=== PATIENT | male | born 1950 | race Caucasian/White ===

== ENCOUNTER 2018-11-05 06:54 | Emergency (ER) | payer MEDICARE, OTHER ==
--- NOTE | 2018-11-05 08:04 | RAD ---
EXAM: Chest Two Views 11/05/2018 8:01 AM HISTORY: Right upper quadrant abdominal pain COMPARISON: Chest radiograph dated July 08, 2012 FINDINGS: Heart: Normal in size and contour. Pulmonary vessels: Normal. Costophrenic angles: Clear. Lungs: There is patchy airspace opacity within the right lower lobe suspicious for developing pneumon ia. The left lung is clear. Pneumothorax: None. Osseous structures:No acute osseous abnormality is evident. There is scattered degenerative and osteo arthritic change present. Additional findings: None. IMPRESSION: Patchy airspace opacity within the right lower lobe is suspicious for pneumonia. Recommend radiograph ic follow-up to resolution.
[2018-11-05 08:11] LABS: Bilirubin Negative (Negative); Blood, Urine Negative (Negative); Clarity CLEAR (Clear); Glucose, Urine (Dipstick) Negative (Negative); Leukocyte Negative (Negative); Nitrite Negative (Negative); Protein, Urine (Dipstick) Negative (Neg-Trace); Specific Gravity, Urine 1.023 (1.002-1.036); Urobilinogen 0.2 mg/dL (0.2-1.0)
--- NOTE | 2018-11-05 08:21 | ULT ---
Sonogram right upper quadrant HISTORY: Right upper quadrant pain. FINDINGS: Multiple shadowing echogenic foci are present within the dependent portion of the gallbladd er lumen. No gallbladder wall thickening or pericholecystic fluid. Common duct is 0.4 cm. Liver unremarkable without focal mass or intrahepatic biliary dilatation. No free fluid. IMPRESSION: Cholelithiasis. No evidence of acute biliary obstruction.
[2018-11-05 08:31] LABS: #Eosinphils 0.4 thou/uL (0.0-0.7); #Lymphocytes 1.4 thou/uL (1.20-3.40); #Monocytes 0.9 thou/uL (0.11-0.59); #Neutrophils 6.4 thou/uL (1.40-6.50); %Basophils 0.5 % (0.0-1.0); %Eosinophils 4.5 % (0.0-10.0); %Neutrophils 70.2 % (42.0-75.0); Hemoglobin 15.3 g/dL (14.0-18.0); Mean Corpuscular HGB CONC 33.5 g/dL (32.0-36.0); Mean Corpuscular Hemoglobin 31.1 pg (27.0-31.0); Mean Corpuscular Volume 92.9 fL (78.0-98.0); Mean Platelet Volume 6.9 fL (7.4-10.4); Platelet Count 221 thou/uL (130-400); RBC Distribution Width 12.6 % (11.5-14.5); Red Blood Cell (RBC) Count 4.91 mill/uL (4.70-6.10); White Blood Cell (WBC) Count 9.1 thou/uL (4.8-10.8)
[2018-11-05] MEDS ORDERED: Lidocaine 1% PF 5 ML VIAL ONE (08:44)
[2018-11-05] MEDS ORDERED: cefTRIAXone\\ROCEPHIN 1 GM VIAL ONE (08:44)
[2018-11-05] MEDS ORDERED: Azithromycin 250 MG TAB ONE (08:44)
[2018-11-05 08:54] LABS: ALT (SGPT) 18 U/L (8-55); AST (SGOT) 25 U/L (5-34); Albumin 4.3 g/dL (3.4-4.8); Alkaline Phosphatase 71 U/L (40-150); Anion Gap 10 mmol/L (10-20); BUN (Urea Nitrogen) 18 mg/dL (8.4-25.7); Bilirubin, Total 0.7 mg/dL (0.2-1.2); Calc. Creatinine Clearance 0 mL/min (70-130); Calcium 9.7 mg/dL (7.8-10.44); Carbon Dioxide 30 mmol/L (23-31); Chloride 105 mmol/L (98-107); Estimated GFR-MDRD 57; Globulin 2.5 g/dL (2.4-3.5); Glucose 106 mg/dL (80-115); Lipase 32 U/L (8-78); Potassium 4.7 mmol/L (3.5-5.1); Protein, Total 6.8 g/dL (5.8-8.1); Sodium 140 mmol/L (136-145)
== END 2018-11-05 09:10 | disposition home or self-care (01) ==
LOC: ERS 06:54
DX: J18.9 Pneumonia, unspecified organism (principal); I10 Essential (primary) hypertension; Z79.899 Other long term (current) drug therapy
CPT/HCPCS: 36415; 71046; 76705; 80053; 81003; 83690; 84484; 85025; 93005; 96372; J0696; J2001

== ENCOUNTER 2023-12-28 08:27 | Outpatient (CLI) | payer MEDICARE, OTHER ==
[2023-12-28 09:44] LABS: #Eosinphils 1.03 10x3/uL (0.0-0.5); #Neutrophils 3.05 10x3/uL (1.5-8.4); %Basophils 1.4 % (0.0-2.0); %Eosinophils 14.7 % (0.0-6.0); %Lymphocytes 27.5 % (18.0-47.0); %Monocytes 12.8 % (0.0-10.0); %Neutrophils 43.3 % (40.0-75.0); Hematocrit 43.8 % (38.8-50.0); Mean Corpuscular HGB CONC 34.2 g/dL (32.0-36.0); Mean Corpuscular Volume 90.5 fL (81.2-95.1); Mean Platelet Volume 9.2 fL (7.4-10.4); Platelet Count 213 10x3/uL (150-450); Red Blood Cell (RBC) Count 4.84 10x6/uL (4.32-5.72)
[2023-12-28 09:47] LABS: Prothrombin Time 10.9 sec (9.5-12.1)
[2023-12-28 10:04] LABS: Anion Gap 12 mmol/L (10-20); BUN (Urea Nitrogen) 15 mg/dL (8.4-25.7); Calc. Creatinine Clearance 0 mL/min (70-130); Calcium 9.3 mg/dL (7.8-10.44); Carbon Dioxide 26 mmol/L (23-31); Chloride 105 mmol/L (98-107); Estimated GFR 71; Glucose 99 mg/dL (83-110); Potassium 4.2 mmol/L (3.5-5.1); Sodium 139 mmol/L (136-145)
== END 2023-12-28 08:28 | disposition home or self-care (01) ==
LOC: LABBT 08:27
PROVIDERS: ATTEND Orthopaedic Surgery
DX: Z01.818 Encounter for other preprocedural examination (principal); M16.12 Unilateral primary osteoarthritis, left hip
CPT/HCPCS: 80048; 85025; 85610; 87081; 93005; 93010

== ENCOUNTER 2024-01-01 07:03 | Observation (INO) | payer MEDICARE, OTHER ==
[2024-01-01] MEDS ORDERED: Tranexamic Acid 1,000 MG/10 ML VIAL ONE (07:34)
[2024-01-01] MEDS ORDERED: Vancomycin (BATCH) 1.5 GM/300 ML BAG ONE (07:35)
[2024-01-01] MEDS ORDERED: Sodium Chloride 0.9% 100 ML ONE ×2 (07:35→09:42)
[2024-01-01] MEDS ORDERED: PROPOFOL 20 ML ONE ×2 (09:04→09:40)
[2024-01-01] MEDS ORDERED: Etomidate 40 MG (20 mL) VIAL ONE (09:33)
[2024-01-01] MEDS ORDERED: fentaNYL 50 mcg/mL 1 mL Vial ONE (09:41)
[2024-01-01] MEDS ORDERED: Midazolam HCl 2 mg/2 ml Vial ONE (09:41)
[2024-01-01] MEDS ORDERED: CEFAZOLIN 2 GM VIAL ONE (09:42)
[2024-01-01] MEDS ORDERED: ePHEDrine Sulfate 50 MG/10 ML VIAL ONE (10:28)
[2024-01-01] MEDS ORDERED: PHENYLEPHRINE-NS 100 MCG/ML 10 ML SYRINGE ONE ×2 (10:43→11:03)
[2024-01-01] MEDS ORDERED: Ondansetron HCl/PF 4 MG/2 ML Vial IVP PRN (11:40)
[2024-01-01] MEDS ORDERED: Zolpidem Tartrate 5 MG TAB PO PRN (11:56)
[2024-01-01] MEDS ORDERED: diphenhydrAMINE 25 MG CAP PO PRN (11:56)
[2024-01-01] MEDS ORDERED: Acetaminophen 325 MG TAB PO PRN (11:56)
[2024-01-01] MEDS ORDERED: Promethazine HCl 25 MG/ML VIAL IM PRN (11:56)
[2024-01-01] MEDS: Sodium Chloride 0.9% 1,000 ML IV SCH (13:16)
[2024-01-01 14:21] VITALS: BMI 23.6
[2024-01-01] MEDS ORDERED: traMADol HCl 50 MG TAB PO PRN (14:40)
[2024-01-01] MEDS: HYDROcodone/Acetaminophen 10/325 mg Tablet PO PRN (14:48)
[2024-01-01] MEDS: traMADol HCl 50 MG TAB PO PRN (15:20)
[2024-01-01] MEDS: Famotidine 20 MG TAB PO SCH (17:22)
[2024-01-01] MEDS: CEFAZOLIN 2 GM in Sodium Chloride 0.9% 100 ML IVPB SCH (17:23)
[2024-01-01] MEDS: Ondansetron PF 4 MG/2 ML Vial IVP PRN (17:34)
[2024-01-01] MEDS: Ferrous Gluconate 324 MG TAB PO SCH (21:24)
[2024-01-01] MEDS: Aspirin 81 mg Enteric Coated Tablet PO SCH (21:24)
[2024-01-01] MEDS: Senokot S 8.6-50 MG TAB PO SCH (21:24)
[2024-01-01] MEDS: HYDROcodone/Acetaminophen 5/325 mg Tablet PO PRN (23:26)
[2024-01-02 05:14] LABS: Hematocrit 34.2 % (42.0-52.0); Hemoglobin 11.6 g/dL (14.0-18.0); Mean Corpuscular HGB CONC 33.9 g/dL (32.0-36.0); Mean Corpuscular Volume 91.4 fL (78.0-98.0); Mean Platelet Volume 9.5 fL (7.4-10.4); Platelet Count 180 10x3/uL (130-400); RBC Distribution Width 13.1 % (11.5-14.5); Red Blood Cell (RBC) Count 3.74 mill/uL (4.70-6.10)
[2024-01-02] MEDS: Famotidine 20 MG TAB PO SCH (08:14)
[2024-01-02] MEDS: Multivitamin W/ Minerals 1 TAB PO SCH (08:14)
[2024-01-02 08:23] VITALS: BP 134/77; TEMP 98.4
== END 2024-01-02 10:54 | disposition home or self-care (01) ==
LOC: SDC 07:03 → SURG A 13:28
PROVIDERS: ADMIT Orthopaedic Surgery; ATTEND Orthopaedic Surgery
PROC: 0SRB0JZ Replacement of Left Hip Joint with Synthetic Substitute, Open Approach (ICD-10-PCS; principal; 2024-01-01)
DX: M16.12 Unilateral primary osteoarthritis, left hip (principal); E78.5 Hyperlipidemia, unspecified; I10 Essential (primary) hypertension; I25.84 Coronary atherosclerosis due to calcified coronary lesion; I25.10 Atherosclerotic heart disease of native coronary artery without angina pectoris; Z79.01 Long term (current) use of anticoagulants; Z98.41 Cataract extraction status, right eye; Z98.42 Cataract extraction status, left eye; Z98.890 Other specified postprocedural states; Z79.899 Other long term (current) drug therapy
CPT/HCPCS: 27130; 72170; 73501; 82962; 85027; 97110 ×2; 97116 ×2; 97530 ×2; 97535; C1713; C1776; J2250; J2405; J2704; J3010; J3370; J3490 ×2; J7050; 36415; 36416